=== PATIENT | female | born 1990 | race Caucasian/White ===

== ENCOUNTER 2019-10-01 08:09 | Inpatient (IN) | payer BC ==
[2019-10-01] MEDS ORDERED: Lactated Ringers 1000 ML Bag* 1,000 ML IV ONE (08:38)
[2019-10-01] MEDS ORDERED: Buffered Lidocaine 1% SYRIN* 1 ML/SYRINGE INTRADERM ONE (08:38)
[2019-10-01] MEDS ORDERED: Misoprostol TAB* 100 MCG VAGINAL ONE ×2 (08:38→14:35)
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
[2019-10-01] MEDS ORDERED: Lactated Ringers 1000 ML Bag* 1,000 ML IV SCH (09:00)
[2019-10-01 10:07] LABS: Urine Benzodiazepine Screen None Detected (None Detect); Urine Opiates Screen None Detected (None Detect)
[2019-10-01] MEDS ORDERED: Misoprostol TAB* 100 MCG ONE (14:39)
[2019-10-01] MEDS ORDERED: Dinoprostone* 10 MG VAG.SUPP VAGINAL ONE (21:32)
[2019-10-02 16:28] LABS: ABS Eosinophils 0.1 10^3/ul (0-0.6); ABS Lymphocytes 1.7 10^3/ul (1.0-4.8); ABS Monocytes 0.9 10^3/ul (0-0.8); ABS Neutrophils 9.7 10^3/ul (1.5-7.7); Eosinophil % 0.6 %; Hematocrit 35 % (35-47); Hemoglobin 12.3 g/dL (12.0-16.0); Lymphocyte % 13.9 %; Mean Corpuscular HGB Conc 35 g/dL (31-36); Mean Corpuscular Hemoglobin 30 pg (27-31); Mean Corpuscular Volume 85 fL (80-97); Mean Platelet Volume 8.1 fL (7.4-10.4); Nucleated Red Blood Cells % 0.1; Platelet Count 240 10^3/uL (150-450); Red Blood Count 4.11 10^6 /uL (3.70-4.87); Red Cell Distribution Width 14 % (10-15); White Blood Count 12.5 10^3/uL (3.5-10.8)
[2019-10-02] MEDS ORDERED: Oxytocin in LR* 20 UNITS/1,000 ML BAG IVPB SCH (17:00)
--- NOTE | 2019-10-02 22:08 | PN ---
Progress Note - Progress Note Date of Service: 10/02/19 Note: pt with 2 doses of misoprostol and a cervidil for 16 hrs . Pitocin for the last 6 hrs. 1-2 cm 50% -2 station. D/w pt and partner getting some rest this evening and restarting in am . Would recommend AROM in am to try to get a better response /pt understands this is committing to delivery but also may get a better response questions answered sag
[2019-10-02] MEDS ORDERED: hydrOXYzine HCL TAB* 50 MG PO ONE (22:32)
[2019-10-03] MEDS ORDERED: Oxytocin in LR* 20 UNITS/1,000 ML BAG IVPB SCH ×2 (08:00→23:45)
[2019-10-03] MEDS ORDERED: OBEPIDURAL* 250 ML EPIDURAL ONE (11:00)
[2019-10-03] MEDS ORDERED: Sodium Citrate/Citric Acid* 15 ML UDC PO PRN (12:30)
[2019-10-03] MEDS ORDERED: EPHEDrine (Pressors)* 50 MG/ML VIAL IV PUSH PRN (12:30)
[2019-10-03] MEDS ORDERED: Famotidine TAB* 20 MG PO PRN (12:30)
[2019-10-03] MEDS ORDERED: OBEPIDURAL* 250 ML EPIDURAL SCH (13:00)
[2019-10-03] MEDS ORDERED: Ropivacaine (OR use only) 2 MG/ML 10 ML ONE (20:33)
--- NOTE | 2019-10-03 20:37 | PN ---
Progress Note - Progress Note Date of Service: 10/03/19 Note: pt with some hip pain . fhr 145 with moderate variability with early decels with each contraction. ve 7 cm 80 % -1-0 now . there is a lot of molding . Discussed with patient my concerns over slow progress but with continued progress and no evidence for compromise feel we can continue to augment . I have turned back pitocin slightly to make sure baby has adequate recovery between contractions. .anesthesia to assess for improved pain control as pt having pain in left hip Yoan Hernández MD
[2019-10-03] MEDS ORDERED: OXYTOCIN* 10 UNITS/ML 1 ML VIAL ONE (21:58)
[2019-10-03] MEDS ORDERED: Morphine PF AMP (0.5MG/ML)* 5 MG/10 ML AMP ONE (22:01)
[2019-10-03] MEDS ORDERED: ceFOXitin 2 GM IVPREMIX* 2 GM/50 ML BAG IVPB ONE (22:06)
[2019-10-03] MEDS ORDERED: ceFOXitin 2 GM IVPREMIX* 2 GM/50 ML BAG ONE (22:07)
[2019-10-03] MEDS ORDERED: fentaNYL* 50 MCG/ML 2 ML VIAL (100 MCG VIAL) ONE (22:27)
[2019-10-03] MEDS ORDERED: Misoprostol TAB* 200 MCG ONE (22:40)
[2019-10-03] MEDS ORDERED: Ketorolac INJ* 30 MG/ML 1 ML VIAL ONE (23:04)
[2019-10-03] MEDS ORDERED: Naloxone* 0.4 MG/ML 1 ML VIAL IV PRN (23:32)
[2019-10-03] MEDS ORDERED: Lactated Ringers 1000 ML Bag* 1,000 ML IV SCH (23:45)
[2019-10-03] MEDS ORDERED: Dibucaine 1% 28.35 GM TUBE PR PRN (23:59)
[2019-10-03] MEDS ORDERED: Witch Hazel PAD* JAR TOPICAL PRN (23:59)
[2019-10-03] MEDS ORDERED: Glycerin ADULT SUPP PR PRN (23:59)
[2019-10-03] MEDS ORDERED: Zolpidem TAB* 5 MG PO PRN (23:59)
--- NOTE | 2019-10-04 00:58 | OP ---
OPERATIVE REPORT: DATE OF OPERATION: 10/03/19 DATE OF : 89 SURGEON: Gurdeep Hernández MD INJECTION PRESS OPERATOR: Suyapa Mcintosh CNM ANESTHESIA: Epidural. PRE-OP DIAGNOSIS: Arrest of descent. POST-OP DIAGNOSES: Arrest of descent plus double nuchal cord OPERATIVE PROCEDURE: Low transverse section. ESTIMATED BLOOD LOSS: 600 cc. FINDINGS: This is a viable male, Apgars 8 and 9, weight was 7 pounds 9 ounces. There was a nuchal co rd x2. Normal appearing tubes and ovaries. The uterus contained several small seedling fibroids on the serosa. DESCRIPTION OF PROCEDURE: The patient identified, procedure identified as low transverse se ction. The patient was taken to the operating room and was prepped and draped in the usual fashion i n the left lateral recumbent position under epidural anesthesia. A Pfannenstiel incision was made in the abdomen and carried down through fat, fascia, and peritoneum. A transverse incision was made in the lower uterine segment, extended laterally using blunt dissection. The above infant was delivere d through the incision. The cord was unwrapped around the neck and the rest of the infant was delive red. The cord was doubly clamped and cut and the infant was handed to the awaiting gunner's mate m. Co rd blood was obtained. Placenta delivered manually. The uterus was wiped out with a wet lap sponge. The uterine incision was then closed using 0 Polysorb in a running fashion. A second layer was used to imbricate the first layer. Good hemostasis was verified. Good hemostasis achieved with 0 Polyso rb [id number] sutures. The uterus was placed back in the abdominal cavity. Good hemostasis aga in verified. The peritoneum was then closed using 3-0 Polysorb in a running fashion. Good hemostasi s was achieved in the subrectus layer. The fascia was closed using 0 Polysorb in a running fashion. Good hemostasis achieved in the subcu. Copious irrigation was utilized and suctioned out. The space was closed using 3-0 Vicryl in a simple fashion and the skin was closed with 4-0 Monocryl in a subcuticular fashion. Mastisol and Steri-Strips were applied. All sponge and instrument counts wer e correct and the patient returned to recovery room in stable condition. [id number]/[facility] #: [id number]
[2019-10-04] MEDS ORDERED: Acetaminophen TAB* 325 MG PO SCH ×2 (03:00→06:00)
[2019-10-04] MEDS ORDERED: RHO D Immune Globulin (HUMAN)* 300 MCG = 1,500 I.U. INJ IM ONE (03:06)
[2019-10-04] MEDS: Acetaminophen TAB* 325 MG PO SCH ×3 (03:08→22:21)
[2019-10-04 05:28] LABS: ABS Basophils 0.1 10^3/ul (0-0.2); ABS Lymphocytes 1.3 10^3/ul (1.0-4.8); ABS Neutrophils 17.8 10^3/ul (1.5-7.7); Eosinophil % 0.1 %; Hematocrit 30 % (35-47); Hemoglobin 10.6 g/dL (12.0-16.0); Lymphocyte % 6.4 %; Mean Corpuscular HGB Conc 35 g/dL (31-36); Mean Corpuscular Hemoglobin 30 pg (27-31); Mean Corpuscular Volume 85 fL (80-97); Platelet Count 213 10^3/uL (150-450); Red Blood Count 3.55 10^6 /uL (3.70-4.87); Red Cell Distribution Width 14 % (10-15); White Blood Count 20.2 10^3/uL (3.5-10.8)
[2019-10-04] MEDS: Ibuprofen TAB* 400 MG PO SCH ×3 (06:49→23:04)
[2019-10-04] MEDS: Levothyroxine TAB* 125 MCG TAB PO SCH (06:50)
[2019-10-04] MEDS ORDERED: Simethicone TAB* 80 MG TAB.CHEW PO SCH (08:30)
[2019-10-04] MEDS ORDERED: Ferrous Gluconate TAB* 324 MG TAB PO SCH (09:00)
[2019-10-04] MEDS: Docusate CAP* 100 MG PO SCH ×3 (09:27→20:59)
[2019-10-04] MEDS: oxyCODONE/Acetamin 5/325 MG* TAB PO PRN ×2 (19:12→23:05)
[2019-10-05] MEDS: Ibuprofen TAB* 400 MG PO SCH ×4 (01:13→22:50)
[2019-10-05] MEDS: oxyCODONE/Acetamin 5/325 MG* TAB PO PRN ×5 (02:59→21:42)
[2019-10-05] MEDS: Acetaminophen TAB* 325 MG PO SCH ×3 (04:06→22:58)
[2019-10-05] MEDS: Levothyroxine TAB* 125 MCG TAB PO SCH (05:57)
[2019-10-05] MEDS: Docusate CAP* 100 MG PO SCH ×3 (08:40→21:40)
[2019-10-05] MEDS: Simethicone TAB* 80 MG TAB.CHEW PO SCH ×2 (12:09→17:54)
[2019-10-06] MEDS: Acetaminophen TAB* 325 MG PO SCH (04:17)
[2019-10-06] MEDS: oxyCODONE/Acetamin 5/325 MG* TAB PO PRN ×2 (04:20→08:36)
[2019-10-06] MEDS: Levothyroxine TAB* 125 MCG TAB PO SCH (05:57)
[2019-10-06 07:43] VITALS: BP 112/74
[2019-10-06] MEDS: Simethicone TAB* 80 MG TAB.CHEW PO SCH (08:35)
[2019-10-06] MEDS: Docusate CAP* 100 MG PO SCH (08:35)
[2019-10-06] MEDS ORDERED: Ibuprofen TAB* 600 MG PO PRN (10:07)
--- NOTE | 2019-10-06 10:11 | PTEDU ---
Patient Name: STUART FOX STUART FOX selected video: Never Ever Shake a Baby to view on 10/06/2019 at 10:10:24 AM from [facility] [id number]
--- NOTE | 2019-10-06 10:20 | PTEDU ---
Patient Name: STUART FOX STUART FOX selected video: BBOB: Bonding Through Infant Massage to view on 10/06/2019 at 10:19:[address] [id number]
== END 2019-10-06 11:15 | disposition home or self-care (01) | DRG 540 ==
LOC: MCHOBOUT 08:09 → MCHOB 08:28
PROVIDERS: ADMIT Obstetrics & Gynecology; ATTEND Obstetrics & Gynecology
PROC: 10907ZC Drainage of Amniotic Fluid, Therapeutic from Products of Conception, Via Natural or Artificial Opening (ICD-10-PCS; 2019-10-01)
PROC: 3E0P7VZ Introduction of Hormone into Female Reproductive, Via Natural or Artificial Opening (ICD-10-PCS; 2019-10-01)
PROC: 3E033VJ Introduction of Other Hormone into Peripheral Vein, Percutaneous Approach (ICD-10-PCS; 2019-10-01)
PROC: 4A1HXCZ Monitoring of Products of Conception, Cardiac Rate, External Approach (ICD-10-PCS; 2019-10-03)
PROC: 10D00Z1 Extraction of Products of Conception, Low, Open Approach (ICD-10-PCS; principal; 2019-10-03 22:15)
DX: O99.284 Endocrine, nutritional and metabolic diseases complicating childbirth (principal); O99.354 Diseases of the nervous system complicating childbirth; G89.29 Other chronic pain; O99.214 Obesity complicating childbirth; E03.9 Hypothyroidism, unspecified; O62.1 Secondary uterine inertia; O69.81X0 Labor and delivery complicated by cord around neck, without compression, not applicable or unspecified; O34.13 Maternal care for benign tumor of corpus uteri, third trimester; D25.9 Leiomyoma of uterus, unspecified; O76 Abnormality in fetal heart rate and rhythm complicating labor and delivery; M25.552 Pain in left hip; Z88.0 Allergy status to penicillin; Z88.1 Allergy status to other antibiotic agents; Z3A.39 39 weeks gestation of pregnancy; Z37.0 Single live birth; Z28.21 Immunization not carried out because of patient refusal
CPT/HCPCS: 36415; 80307; 85025; 86850; 86900; 86901; A9270-GY; J0694; J1885; J2590; J2795; J3010; S0191